=== PATIENT | female | born 1950 | race Caucasian/White ===

== ENCOUNTER 2017-01-12 08:23 | Outpatient (CLI) ==
[2017-01-12 09:06] LABS: HEMATOCRIT 37.2 % (37.0-47.0); HEMOGLOBIN 11.9 g/dl (12.0-16.0); MEAN CORPUSCULAR HEMOGLOBIN 26.8 pg (27.0-31.0); MEAN CORPUSCULAR VOLUME 83.8 fl (81.0-99.0); RED BLOOD COUNT 4.44 10^6/ul (4.20-5.40); WHITE BLOOD COUNT 6.62 K/ul (4.6-10.2)
[2017-01-12 09:12] LABS: BILIRUBIN,URINE Negative (NEGATIVE); KETONES,URINE Negative (NEGATIVE); LEUKOCYTE ESTERASE ,URINE Negative (NEGATIVE); NITRITE,URINE Negative (NEGATIVE); PROTEIN,URINE 2+ (NEGATIVE); URINE, BLOOD Negative (NEGATIVE)
[2017-01-12 09:16] LABS: ADD URINE MICROSCOPIC YES
[2017-01-12 09:46] LABS: ALBUMIN 3.8 g/dL (3.4-5.0); ALBUMIN/GLOBULIN RATIO 1.03; ANION GAP 13.8; BILIRUBIN,TOTAL 0.26 mg/dL (0.00-1.20); BUN/CREATININE RATIO 20.4; CALCIUM 10.5 mg/dL (8.2-10.2); CHOL/HDL RATIO 4.9 (4.5-5.5); CREATININE 1.47 mg/dL (0.60-1.30); POTASSIUM 4.8 mmol/L (3.5-5.10); TOTAL PROTEIN 7.5 g/dL (5.8-8.1)
[2017-01-13 15:15] LABS: URINE CREATININE 32.1 mg/dL (Not Estab.); URINE MALB/CR RATIO 887.2 mg/g creat (0.0-30.0)
== END 2017-01-12 08:24 | disposition home or self-care (01) ==
LOC: LAB 08:23
PROVIDERS: ATTEND Internal Medicine
DX: Z00.00 Encounter for general adult medical examination without abnormal findings (principal); E78.2 Mixed hyperlipidemia; E55.9 Vitamin D deficiency, unspecified; E11.22 Type 2 diabetes mellitus with diabetic chronic kidney disease; N18.3 Chronic kidney disease, stage 3 (moderate); D63.1 Anemia in chronic kidney disease; Z79.4 Long term (current) use of insulin
CPT/HCPCS: 36415; 80053; 80061; 81001; 82043; 82306; 83036; 84443; 85027

== ENCOUNTER 2017-05-25 11:34 | Outpatient (CLI) | payer OTHER | END 2017-05-25 11:35 | disposition home or self-care (01) | LOC: LAB 11:34 | PROVIDERS: ATTEND Internal Medicine | DX: E55.9 Vitamin D deficiency, unspecified (principal); E78.2 Mixed hyperlipidemia; E11.22 Type 2 diabetes mellitus with diabetic chronic kidney disease; I12.9 Hypertensive chronic kidney disease with stage 1 through stage 4 chronic kidney disease, or unspecified chronic kidney disease; N18.3 Chronic kidney disease, stage 3 (moderate); Z79.4 Long term (current) use of insulin | CPT/HCPCS: 36415; 80053; 80061; 82306; 83036; 83970 ==

== ENCOUNTER 2017-12-11 10:03 | Outpatient (RCR) ==
[2017-12-11 11:59] VITALS: TEMP 208.2; BMI 34.4
[2017-12-12 10:57] VITALS: BP 138/60
== END 2017-12-12 23:59 ==
LOC: CAR.REHAB 10:03
PROVIDERS: ATTEND Thoracic Surgery (Cardiothoracic Vascular Surgery)
DX: Z95.1 Presence of aortocoronary bypass graft (principal)
CPT/HCPCS: 93798

== ENCOUNTER 2018-01-14 07:03 | Outpatient (RCR) ==
[2018-02-11 10:54] VITALS: BP 140/60
== END 2018-02-11 23:59 ==
LOC: CAR.REHAB 07:03
PROVIDERS: ATTEND Thoracic Surgery (Cardiothoracic Vascular Surgery)
DX: Z95.1 Presence of aortocoronary bypass graft (principal)
CPT/HCPCS: 93798

== ENCOUNTER 2018-02-13 07:04 | Outpatient (RCR) | payer OTHER ==
[2018-03-08 11:02] VITALS: BP 118/56
== END 2018-03-08 14:32 | disposition home or self-care (01) ==
LOC: CAR.REHAB 07:04
PROVIDERS: ATTEND Thoracic Surgery (Cardiothoracic Vascular Surgery)
DX: Z95.1 Presence of aortocoronary bypass graft (principal)
CPT/HCPCS: 93798

== ENCOUNTER 2018-03-13 09:55 | Outpatient (RCR) ==
[2018-03-14 07:57] VITALS: BP 130/60
== END 2018-03-14 23:59 ==
LOC: CAR.REHAB 09:55
PROVIDERS: ATTEND Thoracic Surgery (Cardiothoracic Vascular Surgery)
DX: I25.810 Atherosclerosis of coronary artery bypass graft(s) without angina pectoris (principal)
CPT/HCPCS: 93797

== ENCOUNTER 2018-03-15 07:28 | Outpatient (RCR) ==
[2018-04-10 10:57] VITALS: BP 128/58
== END 2018-04-11 23:59 ==
LOC: CAR.REHAB 07:28
PROVIDERS: ATTEND Thoracic Surgery (Cardiothoracic Vascular Surgery)
DX: I25.810 Atherosclerosis of coronary artery bypass graft(s) without angina pectoris (principal)
CPT/HCPCS: 93797

== ENCOUNTER 2018-04-12 06:35 | Outpatient (RCR) ==
[2018-05-10 11:00] VITALS: BP 120/58
== END 2018-05-12 23:59 ==
LOC: CAR.REHAB 06:35
PROVIDERS: ATTEND Thoracic Surgery (Cardiothoracic Vascular Surgery)
DX: I25.810 Atherosclerosis of coronary artery bypass graft(s) without angina pectoris (principal)
CPT/HCPCS: 93797

== ENCOUNTER 2018-04-15 11:09 | Outpatient (CLI) | payer OTHER | END 2018-04-15 11:10 | disposition home or self-care (01) | LOC: LAB 11:09 | PROVIDERS: ATTEND Internal Medicine | DX: E11.22 Type 2 diabetes mellitus with diabetic chronic kidney disease (principal); I13.10 Hypertensive heart and chronic kidney disease without heart failure, with stage 1 through stage 4 chronic kidney disease, or unspecified chronic kidney disease; N18.4 Chronic kidney disease, stage 4 (severe); D63.1 Anemia in chronic kidney disease; E78.2 Mixed hyperlipidemia; E83.52 Hypercalcemia; Z79.4 Long term (current) use of insulin | CPT/HCPCS: 36415; 80053; 80061; 82306; 83036 ==

== ENCOUNTER 2018-05-03 11:02 | Outpatient (CLI) | payer OTHER | END 2018-05-03 11:03 | disposition home or self-care (01) | LOC: LAB 11:02 | PROVIDERS: ATTEND Physician Assistant Medical | DX: Z79.899 Other long term (current) drug therapy (principal) | CPT/HCPCS: 36415; 85025 ==

== ENCOUNTER 2018-05-13 07:14 | Outpatient (RCR) ==
[2018-06-07 10:53] VITALS: BP 126/54
== END 2018-06-11 23:59 ==
LOC: CAR.REHAB 07:14
PROVIDERS: ATTEND Thoracic Surgery (Cardiothoracic Vascular Surgery)
DX: I25.810 Atherosclerosis of coronary artery bypass graft(s) without angina pectoris (principal)
CPT/HCPCS: 93798

== ENCOUNTER 2018-06-12 06:58 | Outpatient (RCR) ==
[2018-07-12 10:53] VITALS: BP 124/54
== END 2018-07-12 23:59 ==
LOC: CAR.REHAB 06:58
PROVIDERS: ATTEND Thoracic Surgery (Cardiothoracic Vascular Surgery)
DX: I25.810 Atherosclerosis of coronary artery bypass graft(s) without angina pectoris (principal)
CPT/HCPCS: 93797

== ENCOUNTER 2018-08-01 09:19 | Outpatient (CLI) | END 2018-08-01 09:20 | disposition home or self-care (01) | LOC: LAB 09:19 | PROVIDERS: ATTEND Internal Medicine | DX: E78.2 Mixed hyperlipidemia (principal); I10 Essential (primary) hypertension; E55.9 Vitamin D deficiency, unspecified; N18.4 Chronic kidney disease, stage 4 (severe); D63.1 Anemia in chronic kidney disease; I25.10 Atherosclerotic heart disease of native coronary artery without angina pectoris; E04.1 Nontoxic single thyroid nodule; E11.42 Type 2 diabetes mellitus with diabetic polyneuropathy; Z79.4 Long term (current) use of insulin | CPT/HCPCS: 36415; 80053; 80061; 81001; 82043; 82306; 83036; 84443; 85025 ==

== ENCOUNTER 2018-09-12 07:09 | Outpatient (RCR) ==
[2018-10-10 10:58] VITALS: BP 142/56
== END 2018-10-12 23:59 ==
LOC: CAR.REHAB 07:09
PROVIDERS: ATTEND Thoracic Surgery (Cardiothoracic Vascular Surgery)
DX: I25.810 Atherosclerosis of coronary artery bypass graft(s) without angina pectoris (principal)
CPT/HCPCS: 93797